=== PATIENT | male | born 1980 | race African-American/Black ===

== ENCOUNTER 2017-03-15 02:59 | Emergency (ER) | payer OTHER ==
[~2017-03-15] VITALS: Ht 182.9 cm; Wt 83.9 kg
[~2017-03-15 02:59] MED LIST: AMOXICILLIN 50500 M1 PO; IBUPROFEN 600600 M1 PO
[2017-03-15 03:03] VITALS: BP 147/96
[2017-03-15 03:19] LABS: URINE BILIRUBIN NEGATIVE (Negative); URINE BLOOD NEGATIVE (Negative); URINE COLOR YELLOW; URINE GLUCOSE-RANDOM* NEGATIVE (Negative); URINE KETONES NEGATIVE (Negative); URINE NITRITE NEGATIVE (Negative); URINE PROTEIN (DIPSTICK) TRACE (Negative); URINE SPECIFIC GRAVITY 1.015 (1.003-1.035)
[2017-03-15] MEDS ORDERED: CITRATE OF MAG296 ML PO (03:34)
== END 2017-03-15 03:55 | disposition home or self-care (01) ==
LOC: ER 02:59
PROVIDERS: Emergency Medicine
DX: K40.90 Unilateral inguinal hernia, without obstruction or gangrene, not specified as recurrent (principal); F17.210 Nicotine dependence, cigarettes, uncomplicated; F10.99 Alcohol use, unspecified with unspecified alcohol-induced disorder; F15.10 Other stimulant abuse, uncomplicated

== ENCOUNTER 2017-03-23 11:08 | Emergency (ER) | payer OTHER ==
[~2017-03-23] VITALS: Ht 182.9 cm; Wt 83.9 kg
[~2017-03-23 11:08] MED LIST changes: +CITRATE OF MAG296 ML PO
[2017-03-23 12:01] LABS: ABSOLUTE NEUTROPHILS 5.2 thou/uL (1.4-8.2); BASOPHILS 0.8 % (0.0-2.0); EOSINOPHILS 6.3 % (0.0-3.0); HEMATOCRIT 47.4 % (42.0-52.0); HEMOGLOBIN 15.9 gm/dL (14.0-18.0); MCH 27.7 pg (26.0-34.0); MCHC 33.6 g/dL (28.0-37.0); MCV 82.5 fL (80.0-100.0); MONOCYTES 6.1 % (1.0-8.0); PLATELET COUNT 273 thou/uL (150-400); POLYS 62.8 % (36.0-66.0); RBC 5.75 mil/uL (4.50-6.00); RDW 14.3 % (10.5-14.5); WBC 8.3 thou/uL (4.0-11.0)
[2017-03-23 12:02] LABS: URINE BILIRUBIN NEGATIVE (Negative); URINE BLOOD NEGATIVE (Negative); URINE COLOR YELLOW; URINE GLUCOSE-RANDOM* NEGATIVE (Negative); URINE KETONES NEGATIVE (Negative); URINE NITRITE NEGATIVE (Negative); URINE PROTEIN (DIPSTICK) NEGATIVE (Negative)
[2017-03-23 12:03] LABS: MANUAL DIFF NO
[2017-03-23 12:09] LABS: CALCIUM 9.4 mg/dL (8.5-10.1); CREATININE 1.2 mg/dL (0.7-1.3); POTASSIUM 4.4 mmol/L (3.5-5.1)
[2017-03-23 12:13] LABS: ALBUMIN 4.3 g/dL (3.4-5.0); DIRECT BILIRUBIN 0.1 mg/dL (<0.1-0.3); TOTAL BILIRUBIN 0.9 mg/dL (<0.1-1.0); TOTAL PROTEIN 7.7 g/dL (6.4-8.2)
[2017-03-23] MEDS ORDERED: IBUPROFEN 600600 M1 PO (13:25)
[2017-03-23] MEDS ORDERED: ULTRAM 50MG TAB50 MG PO (13:25)
[2017-03-23 14:03] VITALS: BP 129/68
== END 2017-03-23 14:06 | disposition home or self-care (01) ==
LOC: ER 11:08
PROVIDERS: Nurse Practitioner
DX: K40.90 Unilateral inguinal hernia, without obstruction or gangrene, not specified as recurrent (principal); F17.210 Nicotine dependence, cigarettes, uncomplicated; F10.99 Alcohol use, unspecified with unspecified alcohol-induced disorder; Z98.890 Other specified postprocedural states

== ENCOUNTER 2018-03-14 16:36 | Emergency (ER) | payer OTHER ==
[~2018-03-14] VITALS: Ht 182.9 cm; Wt 86.2 kg
--- NOTE | ~2018-03-14 | EKG ---
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
[~2018-03-14 16:36] MED LIST changes: +ULTRAM 50MG TAB50 MG PO
[2018-03-14] MEDS ORDERED: NORFLEX100 MG PO (18:30)
[2018-03-14] MEDS ORDERED: MOBIC7.5 MG PO (18:30)
[2018-03-14 18:55] VITALS: BP 145/86
== END 2018-03-14 18:56 | disposition home or self-care (01) ==
LOC: ER 16:36
DX: S29.012A Strain of muscle and tendon of back wall of thorax, initial encounter (principal); F17.210 Nicotine dependence, cigarettes, uncomplicated; X50.0XXA Overexertion from strenuous movement or load, initial encounter; Y92.89 Other specified places as the place of occurrence of the external cause; Y93.89 Activity, other specified; Y99.8 Other external cause status

== ENCOUNTER 2018-05-28 11:52 | Emergency (ER) | payer OTHER ==
[~2018-05-28] VITALS: Ht 182.9 cm; Wt 81.7 kg
--- NOTE | ~2018-05-28 | EKG ---
[address] [address] ELECTROCARDIOGRAM REPORT Name: Poonam KAY Room #: DEP [facility]#: [id number] Admission: 05/28/18 Attend Phys: Discharge: 05/28/18 Date of : 84 Report #: [id number] THIS REPORT FOR: //name// 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
[~2018-05-28 11:52] MED LIST changes: +MOBIC7.5 MG PO; +NORFLEX100 MG PO
[2018-05-28 13:34] VITALS: BP 117/84
[2018-05-28] MEDS ORDERED: NORCO 5-325 TA1 EACH PO (13:39)
[2018-05-28] MEDS ORDERED: CYCLOBENZAPRINE5 MG PO (13:39)
== END 2018-05-28 13:54 | disposition home or self-care (01) ==
LOC: ER 11:52
DX: G44.209 Tension-type headache, unspecified, not intractable (principal); M25.512 Pain in left shoulder; M54.9 Dorsalgia, unspecified; M62.838 Other muscle spasm; F17.210 Nicotine dependence, cigarettes, uncomplicated

== ENCOUNTER 2020-07-24 08:06 | Emergency (ER) | payer OTHER ==
[~2020-07-24] VITALS: Ht 182.9 cm; Wt 81.7 kg
[~2020-07-24 08:06] MED LIST changes: +CYCLOBENZAPRINE5 MG PO; +NORCO 5-325 TA1 EACH PO
[2020-07-24] MEDS ORDERED: SUDAFED 12 HOU120 MG PO (08:08)
[2020-07-24 08:41] LABS: ABSOLUTE NEUTROPHILS 10.6 thou/uL (1.4-8.2); BASOPHILS 0.2 % (0.0-2.0); EOSINOPHILS 2.1 % (0.0-3.0); HEMATOCRIT 42.2 % (42.0-52.0); HEMOGLOBIN 13.6 gm/dL (14.0-18.0); MCH 27.6 pg (26.0-34.0); MCHC 32.1 g/dL (28.0-37.0); MCV 85.9 fL (80.0-100.0); MONOCYTES 11.6 % (1.0-8.0); PLATELET COUNT 476 thou/uL (150-400); POLYS 78.1 % (36.0-66.0); RBC 4.91 mil/uL (4.50-6.00); RDW 14.4 % (10.5-14.5); WBC 13.6 thou/uL (4.0-11.0)
[2020-07-24 08:46] LABS: ANION GAP 10 mmol/L (7-16); BUN 12 mg/dL (7-18); CALCIUM 9.4 mg/dL (8.5-10.1); CHLORIDE 102 mmol/L (98-107); CO2 24 mmol/L (21-32); GLUCOSE 142 mg/dL (74-106); POTASSIUM 3.8 mmol/L (3.5-5.1); SODIUM 136 mmol/L (136-145)
[2020-07-24 09:02] LABS: ALBUMIN 3.7 g/dL (3.4-5.0); SGOT 15 U/L (15-37); SGPT 20 U/L (30-65); TOTAL BILIRUBIN 1.8 mg/dL (0.2-1.0); TOTAL PROTEIN 7.7 g/dL (6.4-8.2); TROPONIN-I <0.06 ng/mL (<0.06)
[2020-07-24 11:16] VITALS: BP 114/51
[2020-07-24 11:31] LABS: AMP/METHAMP Negative (Negative); BARBITURATES Negative (Negative); BENZODIAZEPINES Negative (Negative); COCAINE Negative (Negative); METHADONE Negative (Negative); OPIATES Negative (Negative); PCP Negative (Negative)
[2020-07-24] MEDS ORDERED: NAPROSYN500 MG PO (11:47)
[2020-07-24] MEDS ORDERED: PRILOSEC OTC20 MG PO (11:47)
--- NOTE | 2020-07-24 14:37 | EKG ---
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[facility] : 1980 Requested By: Cortez Reyes Order Number: [id number] MD: Michael Rea Measurements Intervals [place] Rate: 111 P: 44 NE: 158 QRS: -35 QRSD: 137 T: 122 QT: 347 QTc: 472 Interpretive Statements Sinus tachycardia Left atrial enlargement Left bundle branch block Compared to ECG 05/28/2018 12:30:59 Atrial abnormality now present Left bundle-branch block now present Sinus rhythm no longer present Electronically Signed On 07-24-2020 14:37:48 [employer]PER[employer] by Michael Rea [email or web address] <ELECTRONICALLY SIGNED> By: Michael Rea MD, FACC 07/24/20 1437 0810 0810 Michael Rea MD, [facility] /EPI
== END 2020-07-24 12:05 | disposition home or self-care (01) ==
LOC: ER 08:06
PROVIDERS: Emergency Medicine
DX: R07.89 Other chest pain (principal); K21.9 Gastro-esophageal reflux disease without esophagitis; R79.89 Other specified abnormal findings of blood chemistry; R10.13 Epigastric pain; R05 Cough; R51.9 Headache, unspecified; R42 Dizziness and giddiness; F17.210 Nicotine dependence, cigarettes, uncomplicated; Z20.828 Contact with and (suspected) exposure to other viral communicable diseases; Z79.899 Other long term (current) drug therapy

== ENCOUNTER 2020-11-22 14:59 | Emergency (ER) | payer OTHER ==
[~2020-11-22] VITALS: Ht 182.9 cm; Wt 85.7 kg
[~2020-11-22 14:59] MED LIST changes: +NAPROSYN500 MG PO; +PRILOSEC OTC20 MG PO; +SUDAFED 12 HOU120 MG PO
[2020-11-22 15:11] LABS: URINE BILIRUBIN NEGATIVE (Negative); URINE BLOOD NEGATIVE (Negative); URINE CLARITY CLEAR; URINE COLOR YELLOW; URINE GLUCOSE-RANDOM* NEGATIVE (Negative); URINE KETONES NEGATIVE (Negative); URINE LEUKOCYTES-REFLEX NEGATIVE (Negative); URINE NITRITE-REFLEX NEGATIVE (Negative); URINE PROTEIN (DIPSTICK) NEGATIVE (Negative); URINE SPECIFIC GRAVITY 1.025 (1.005-1.035); URINE UROBILINOGEN 0.2 E.U./dl (0.2-1.0)
[2020-11-22 15:53] VITALS: BP 130/72
[2020-11-22] MEDS ORDERED: FLAGYL500 M1 PO (16:18)
== END 2020-11-22 16:37 | disposition home or self-care (01) ==
LOC: ER 14:59
PROVIDERS: Physician Assistant
DX: A59.9 Trichomoniasis, unspecified (principal); F12.90 Cannabis use, unspecified, uncomplicated; F17.210 Nicotine dependence, cigarettes, uncomplicated

== ENCOUNTER 2021-08-26 11:02 | Emergency (ER) | payer OTHER ==
[~2021-08-26] VITALS: Ht 182.9 cm; Wt 90.7 kg
[~2021-08-26 11:02] MED LIST changes: +FLAGYL500 M1 PO
[2021-08-26 11:10] VITALS: BP 121/82
== END 2021-08-26 13:43 | disposition home or self-care (01) ==
LOC: ER 11:02
PROVIDERS: Nurse Practitioner
DX: U07.1 COVID-19 (principal); J06.9 Acute upper respiratory infection, unspecified; R05.9 Cough, unspecified; F17.210 Nicotine dependence, cigarettes, uncomplicated; F12.90 Cannabis use, unspecified, uncomplicated; Z79.899 Other long term (current) drug therapy